=== PATIENT | female | born 1980 | race Caucasian/White ===

== ENCOUNTER 2017-08-11 16:33 | Emergency (ER) | payer OTHER ==
[~2017-08-11] VITALS: Ht 162.6 cm; Wt 93.0 kg
[2017-08-11] MEDS ORDERED: SINGULAIR 10 MG10 M1 PO (16:46)
[2017-08-11] MEDS ORDERED: NEXIUM40 M2 PO (16:46)
[2017-08-11] MEDS ORDERED: ZYRTEC10 M4 PO (16:46)
[2017-08-11] MEDS ORDERED: PREMARIN1.25 MG PO (16:47)
[2017-08-11] MEDS ORDERED: ALPRAZOLAM 0.50.5 M1 PO (16:47)
[2017-08-11 20:08] VITALS: BP 144/86
== END 2017-08-11 20:09 | disposition home or self-care (01) ==
LOC: M.ERS 16:33
DX: S06.0X1A Concussion with loss of consciousness of 30 minutes or less, initial encounter (principal); Z91.041 Radiographic dye allergy status; W07.XXXA Fall from chair, initial encounter; Y93.89 Activity, other specified; Y92.89 Other specified places as the place of occurrence of the external cause; Y99.8 Other external cause status